=== PATIENT | male | born 2005 | race Caucasian/White ===

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

== ENCOUNTER 2024-11-04 02:55 | Emergency (ER) | payer SELFPAY ==
[2024-11-04 02:56] VITALS: BP 144/83; PULSE 102; RESP 20; TEMP 36.6; O2SAT 100; BMI 30.2
[2024-11-04 03:25] VITALS: BP 151/86; PULSE 110; RESP 18; TEMP 36.6; O2SAT 100
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
[2024-11-04 03:45] LABS: Absolute Lymphocyte Count 1.64 X10^3/uL (0.83-4.51); Absolute Neutrophil Count 10.4 X10^3/uL (2.0-7.7); Basophil# 0.11 X10^3/uL; Basophil% 0.8 % (0-1); Eosinophil# 0.16 X10^3/uL; Eosinophils% 1.2 % (0-5); Hematocrit 44.1 % (40-54); Hemoglobin 14.5 g/dL (13.0-16.5); Lymphocyte # 1.64 X10^3/ul (0.83-4.51); Lymphocyte % 12.2 % (19-41); Mean Corp Hgb Conc 32.9 g/dL (32-36); Mean Corpuscular Hgb 30.1 pg (27.0-32.0); Mean Corpuscular Volume 91.7 fL (80-94); Mean Platelet Vol. 9.4 fl (6.2-12.0); Monocyte% 6.7 % (0-10); NRBC Flagged by Analyzer 0 % (0-5); Neutrophil # 10.36 X10^3/uL (2.7-7.7); Neutrophil % 77.4 % (47-70); Platelet Count 292 K/mm3 (150-450); RBC Distribution Width CV 12.6 % (11.6-14.6); RBC Distribution Width SD 42.4 fl (35.1-43.9); Red Blood Count 4.81 M/mm3 (4.6-6.2); White Blood Count 13.4 K/mm3 (4.4-11.0)
[2024-11-04 04:00] VITALS: BP 144/72; PULSE 106; RESP 18; O2SAT 96
[2024-11-04 04:09] LABS: AST(SGOT) 114 U/L (<=37); Alanine Aminotransfer ALT/SGPT 59 U/L (<=46); Albumin, Serum 4.6 g/dL (3.5-5.0); Alkaline Phosphatase 86 U/L (40-129); Anion Gap 15 (5-15); BUN 6 mg/dL (4-19); BUN/Creat Ratio 6.2 RATIO (10-20); Bilirubin, Direct 0.13 mg/dL (0.00-0.30); Calcium,Total 9.4 mg/dL (7.6-11.0); Carbon Dioxide 23.9 mmol/L (21.0-32.0); Chloride 104 mmol/L (98-108); Creatinine, Serum 0.97 mg/dL (0.70-1.20); EST Glomerular Filtration Rate 114 (>60); Estimated Creatinine Clearance 153.64 ml/min (50-250); Globulin 3.4 g/dL (2.2-4.2); Glucose 120 mg/dL (70-99); Lipase 99 U/L (13-75); Potassium 3.9 mmol/L (3.3-5.1); Sodium Level 143 mmol/L (133-145); Total Bilirubin 0.26 mg/dL (0.00-1.30)
[2024-11-04 04:29] LABS: Bacteria 0 SEEN /hpf (None Seen); Mucous, Urine 0 SEEN /hpf (<or=2+); Red Blood Cells-Urine 0 SEEN /hpf (0-5); Squamous Epithelial Cells - UA 0 SEEN /hpf (0-5); White Blood Cells 0 SEEN /hpf (0-5)
[2024-11-04 04:30] LABS: Glucose, Dipstick Normal (Normal); Ketone-Dipstick Negative (Negative); Leukocyte Esterase-Dipstick Negative /ul (Negative); Nitrite-Dipstick Negative (Negative); Occult Blood-Urine 150 /ul (Negative); Protein-Dipstick 100 mg/dl (Negative); Urine Bilirubin Dipstick Negative (Negative); Urine Urobilinogen Normal (Normal)
[2024-11-04 04:40] LABS: Color, Urine Yellow (Yellow); Urine Clarity Clear (Clear)
[2024-11-04 05:00] VITALS: BP 125/50; PULSE 92; RESP 16; O2SAT 99
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
[2024-11-04 05:37] VITALS: BP 134/86; PULSE 96; RESP 18; TEMP 36.7; O2SAT 99
== END 2024-11-04 05:49 | disposition short-term general hospital (02) ==
PROVIDERS: Emergency Provider Emergency Medicine; PCP Hospitalist; Visit Provider Emergency Medicine
DX: K68.3 Retroperitoneal hematoma (principal); S22.41XA Multiple fractures of ribs, right side, initial encounter for closed fracture; V89.2XXA Person injured in unspecified motor-vehicle accident, traffic, initial encounter; F10.129 Alcohol abuse with intoxication, unspecified; Y90.7 Blood alcohol level of 200-239 mg/100 ml; J45.909 Unspecified asthma, uncomplicated; F17.210 Nicotine dependence, cigarettes, uncomplicated
CPT/HCPCS: 70450; 71260; 72125; 74177; 80048; 80076; 81001; 82077; 83690; 85025; 99285; Q9967; A4216